=== PATIENT | female | born 1995 | race Caucasian/White ===

== ENCOUNTER → 2024-04-07 | Outpatient (CLI) | payer OTHER, SELFPAY ==
[2024-04-07 08:54] LABS: Free T4 (Free Thyroxine) 1.03 ng/dL (0.89-1.76); Thyroid Stimulating Hormone 1.84 uIU/mL (0.55-4.78)
[2024-04-13 06:16] LABS: ANA Screen, IFA NEGATIVE (NEGATIVE)
== END | disposition home or self-care (01) ==
LOC: COPL 07:11
PROVIDERS: PCP Internal Medicine; Referring Provider Internal Medicine; Visit Provider Internal Medicine
DX: M25.50 Pain in unspecified joint (principal); M85.89 Other specified disorders of bone density and structure, multiple sites
CPT/HCPCS: 36415; 84439; 84443; 86038

== ENCOUNTER 2024-06-28 07:43 | Emergency (ER) | payer OTHER, SELFPAY ==
[2024-06-28 07:44] VITALS: BMI 21.6
[2024-06-28 08:21] VITALS: BP 116/81; PULSE 80; RESP 18; TEMP 36.9; O2SAT 99
[2024-06-28 09:09] LABS: Strep A Rapid Negative (Negative)
--- NOTE | 2024-06-28 09:10 | EDNOTE_ITS ---
Upper Respiratory Inf. RME/HPI General Chief Complaint: Dental/Oral/Throat Stated Complaint: TONSIL PAIN AND BLEEDING LAST NIGHT Time Seen by Provider: 06/28/24 07:45 Arrival date/time: 06/28/24 07:43 29-year-old female presents emergency department today with complaint of sore throat patient reports she has had sore throat for more than a year intermittently Limitations: no limitations Related Data Allergies Allergy/AdvReac Type Severity Reaction Status Date / Time shellfish derived Allergy Verified 06/28/24 07:46 Review of Systems Review of Systems Systems Reviewed: All systems reviewed, normal except as documented Constitutional Constitutional: Reports system reviewed and no additional complaints, except as documented, Denies fever(s) and Denies headache(s) Eyes Eyes: Reports system reviewed and no additional complaints, except as documented and Denies blurry vision ENT Ears, Nose, Mouth, and Throat: Reports system reviewed and no additional complaints, except as documented, Denies headache(s), Denies nasal congestion, Reports nasal discharge, Reports nasal obstruction, Reports sore throat and Denies throat swelling Cardiovascular Cardiovascular: Reports system reviewed and no additional complaints, except as documented, Denies chest pain and Denies dyspnea Respiratory Respiratory: Reports system reviewed and no additional complaints, except as documented, Denies chest congestion, Denies cough and Denies dyspnea Gastrointestinal Gastrointestinal: Reports system reviewed and no additional complaints, except as documented and Denies abdominal pain Integumentary/Breasts Skin/Breast: Reports system reviewed and no additional complaints, except as documented and Denies rash Neurologic Neurologic: Reports system reviewed and no additional complaints, except as documented, Reports as per HPI and Denies headache(s) Allergic/Immunologic Allergic/Immunologic: Denies throat swelling Past Medical History Social History SMOKING STATUS: Never smoker ED Exam General Limitations: Present no limitations General appearance: Present alert and in no apparent distress Head Head exam: Present atraumatic, normocephalic and normal inspection Eye Eye exam: Present normal appearance, PERRL and EOMI; Absent conjunctival injection ENT ENT exam: Present normal exam, normal oropharynx and mucous membranes moist Neck Neck exam: Present normal inspection, full ROM and trachea midline Chest Chest inspection: Present normal inspection and symmetric chest wall rise Respiratory Respiratory exam: Present normal lung sounds bilaterally; Absent respiratory distress, wheezes, stridor, accessory muscle use or prolonged expiratory phase Cardiovascular Cardiovascular exam: Present regular rate, normal rhythm and normal heart sounds Abdominal Exam Abdominal exam: Present soft and normal bowel sounds; Absent distention, tenderness, guarding, rebound or rigidity Extremities Exam Extremities exam: Present normal inspection and full ROM Back Exam Back exam: Present normal inspection and full ROM Neurological Exam Neurological exam: Present alert, oriented X3 and CN II-XII intact Psychiatric Psychiatric exam: Present normal affect and normal mood Skin Skin exam: Present warm, dry, intact and normal color Course Quality Measures none Orders Category Date Time Status Strep A Rapid Stat Lab 06/28/24 08:48 Completed Vital Signs Vital signs: Vital Signs Temperature 98.4 F 06/28/24 08:21 Pulse Rate 80 06/28/24 08:21 Respiratory Rate 18 06/28/24 08:21 Blood Pressure 116/81 06/28/24 08:21 Pulse Oximetry (%) 99 06/28/24 08:21 Oxygen Delivery Method Room Air 06/28/24 08:21 O2 saturation 99% on room air within normal limits Upper Respiratory Infection MDM Narrative MDM Narrative:: 29-year-old female presents emergency department today with complaint of sore throat patient reports she has had sore throat for more than a year intermittently On exam patient well-appearing patient does not appear ill or toxic patient is no difficulty breathing no difficulty swallowing On exam patient has no tonsillar erythema or swelling Patient discharged home in no distress to follow-up with primary care doctor in the next 24 to 48 hours and for any worsening symptoms to return to the ER immediately Patient data External records reviewed:: [facility] previous records Clinical information provided by:: patient Social determinants that could affect healthcare access:: none Patient has the following chronic illnesses:: None How is presenting disease/condition affected by chronic disease/condition?: no chronic disease Evaluation data The following diagnostics were reviewed and interpreted by me:: other (specify) (N/A) Lab and/or radiology exams considered but not ordered:: Consider not ordered Interpretation Summary: N/A Medications / Prescriptions Medications or Prescriptions considered but not ordered:: Given Medication administrations:: Given Consultations Consultation(s) initiated? (list below): No Diagnosis Upper Respiratory Differential Diagnosis: upper respiratory infection, sinusitis, viral infection, bronchitis, influenza and pharyngitis Most likely diagnosis given after review of the tests above:: Pharyngitis Admission Indicated Admission indicated?: not indicated Admission Request Was there a request for admission?: No Disposition Plan Disposition Plan: Discharge Discharge Attestation Discharge Attestation: The patient and all family members were given an opportunity to ask questions and understood the discharge instructions. Discharge instructions specifically effects, indications for sooner follow up or return to the emergency department, and the expected course of current diagnosis. Patient condition: Stable Discharge Plan Plan Patient Disposition: HOME (Self Care) Disposition Comment: Stable Prescriptions/Referrals Referrals: No Primary/Family,Physician [Primary Care Provider] - In 1 week Problem List Clinical Impression: Acute viral pharyngitis Patient/Caregiver Discharge Instructions Education Materials: ED URI, Viral, No Abx (Adult) Additional Instructions: Please follow up with your primary care doctor in the next 24-48hrs for any worsening symptoms return here immediately Print Language: Czech Stand Alone Forms: Kim Award Info., Work/School Release, Patient Portal Info Letter PA/ITALO Supervising Physician DENISA/ITALO Supervising Physician: Dr Mi
--- NOTE | 2024-06-28 09:58 | PC.NURSE ---
@0945- PT CALLED FOR DISCHARGE INSTRUCTIONS; NO ANSWER. @0950- PT CALLED AGAIN; NO ANSWER. @0956- PT CALLED AGAIN NO ANSWER. PT LEFT WITHOUT DISCHARGE INSTRUCTIONS.
== END 2024-06-28 10:00 | disposition home or self-care (01) ==
PROVIDERS: Nurse Practitioner Primary Care; Emergency Provider Emergency Medicine
DX: J02.8 Acute pharyngitis due to other specified organisms (principal); B97.89 Other viral agents as the cause of diseases classified elsewhere
CPT/HCPCS: 87651; 99283

== ENCOUNTER → 2024-07-04 | Outpatient (CLI) | payer OTHER, SELFPAY ==
--- NOTE | 2024-07-04 | XR_ITS ---
Examination: PA lateral chest 2 views TECHNIQUE: Upright PA lateral chest 2 views Exam date and time: July 04, 2024 0731 hours INDICATIONS: Chest pain shortness of breath beginning 8 years ago FINDINGS: Normal heart size Lungs are clear. The osseous structures are intact IMPRESSION: No active disease
[2024-07-04 08:54] LABS: Free T4 (Free Thyroxine) 1.05 ng/dL (0.89-1.76); Thyroid Stimulating Hormone 4.11 uIU/mL (0.55-4.78)
[2024-07-04 08:56] LABS: Follicle Stimulating Hormone 3.88 mIU/mL (See Note)
[2024-07-12 07:00] LABS: Estrogen, Total, Serum* 61 pg/mL; Luteinizing Hormone* 1.7 mIU/mL; Progesterone,LC/MS* <0.1 ng/mL; T3 Uptake* 24 % (22-35); Testosterone, Free,Dialysis 0.7 pg/mL (0.1-6.4); Testosterone, Total, Dialysis 12 ng/dL (2-45)
== END | disposition home or self-care (01) ==
LOC: CDIM 07:07 → COPL 07:51
PROVIDERS: PCP Internal Medicine; Referring Provider Nurse Practitioner Family; Visit Provider Radiology Diagnostic Radiology
DX: R04.2 Hemoptysis (principal); M54.9 Dorsalgia, unspecified; J01.10 Acute frontal sinusitis, unspecified; R10.2 Pelvic and perineal pain; M25.50 Pain in unspecified joint; J03.90 Acute tonsillitis, unspecified; R10.13 Epigastric pain; R07.89 Other chest pain; R06.7 Sneezing; J30.89 Other allergic rhinitis; U07.1 COVID-19; Z30.09 Encounter for other general counseling and advice on contraception; F41.1 Generalized anxiety disorder; M85.89 Other specified disorders of bone density and structure, multiple sites
CPT/HCPCS: 36415; 71046; 82672; 83001; 83002; 84144; 84402; 84403; 84439; 84443; 84479

== ENCOUNTER → 2024-07-08 | Outpatient (CLI) | payer OTHER, SELFPAY ==
[2024-07-08 13:20] LABS: Basophils # (Auto) 0.1 Thou/mm3 (0.0-0.2); Basophils % (Auto) 1 % (0-2.5); Eosinophils # (Auto) 0.1 Thou/mm3 (0.0-0.5); Eosinophils % (Auto) 1 % (0-10); Hematocrit 40.2 % (36.0-46.0); Hemoglobin 13.8 g/dL (12.0-16.0); Immature Granulocytes % (Auto) 0 % (0-0); Immature Granulocytes Auto 0.05 Thou/mm3 (0.00-0.00); Lymphocytes # (Auto) 3.6 Thou/mm3 (1.0-4.8); Lymphocytes % (Auto) 25 % (10-50); Mean Corpuscular HGB Conc 34.3 g/dl (31.0-37.0); Mean Corpuscular Hemoglobin 31.9 pg (25.0-35.0); Mean Corpuscular Volume 93 fL (80-100); Monocytes # (Auto) 0.9 Thou/mm3 (0.0-0.8); Monocytes % (Auto) 7 % (0-12); Neutrophils # (Auto) 9.3 Thou/mm3 (1.8-7.7); Neutrophils % (Auto) 66 % (37-80); Nucleated Red Blood Cell % 0 /100 WBC (0); Platelet Count 394 Thou/mm3 (140-440); RDW Standard Deviation 43.2 fL (36.4-46.3); Red Blood Count 4.33 Miln/mm3 (4.00-5.20); White Blood Count 14.1 Thou/mm3 (3.6-11.0)
[2024-07-08 13:42] LABS: Folate 17.65 ng/mL (>5.38); Vitamin B12 288 pg/mL (211-911); Vitamin D 25 Hydroxy Total 33.2 ng/mL (7.3-40.2)
[2024-07-08 13:51] LABS: Alanine Aminotransferase 10 U/L (10-49); Albumin, Serum 4.5 gm/dL (3.5-5.0); Albumin/Globulin Ratio 1.7 (1.2-2.2); Alkaline Phosphatase 44 U/L (46-116); Anion Gap 7 (7-16); Aspartate Amino Transferase 14 U/L (0-34); BUN/Creatinine Ratio 12 Ratio (12-20); Bilirubin,Total 0.5 mg/dL (0.3-1.2); Blood Urea Nitrogen 11 mg/dL (9-23); C-Reactive Protein < 0.4 mg/dL (0.0-0.9); Calcium 10.1 mg/dL (8.3-10.6); Calcium (Corrected) 10.1 mg/dL (8.5-10.1); Carbon Dioxide 28.5 mMol/L (20.0-31.0); Chloride 103 mMol/L (98-107); Creatinine (Component) 0.9 mg/dL (0.6-1.3); Globulin 2.6 gm/dL (2.3-3.5); Glucose 79 mg/dL (74-106); Osmolality,Calculated 274 (275-295); Sodium 138 mMol/L (136-145); Total Protein 7.1 gm/dL (5.7-8.2); eGFR > 60 See Note
[2024-07-08 17:40] LABS: Sed Rate (ESR) 1 mm/hr (0-20)
[2024-07-10 14:44] LABS: RA Screen Negative (Negative)
[2024-07-18 15:37] LABS: Sjogren's antibody (SS-A) <1.0 NEG AI (<1.0 NEGATIVE)
[2024-07-19 06:25] LABS: ANA Screen, IFA NEGATIVE (NEGATIVE); CCP Antibody (IgG)* <16 Units; Sjogren's Antibody (SS-B) <1.0 NEG AI (<1.0 NEGATIVE); Thyroid Peroxidase Antibodies* 1 IU/mL (<9)
== END | disposition home or self-care (01) ==
LOC: COPL 12:05
PROVIDERS: PCP Nurse Practitioner Family; Referring Provider Internal Medicine; Visit Provider Internal Medicine
DX: Z30.09 Encounter for other general counseling and advice on contraception (principal); F32.A Depression, unspecified; F41.1 Generalized anxiety disorder; F41.9 Anxiety disorder, unspecified; J01.10 Acute frontal sinusitis, unspecified; J03.91 Acute recurrent tonsillitis, unspecified; J30.89 Other allergic rhinitis; K21.9 Gastro-esophageal reflux disease without esophagitis; M25.50 Pain in unspecified joint; M54.9 Dorsalgia, unspecified; M79.18 Myalgia, other site; M85.89 Other specified disorders of bone density and structure, multiple sites; R04.2 Hemoptysis; R07.89 Other chest pain; R10.13 Epigastric pain; R10.2 Pelvic and perineal pain; R53.83 Other fatigue; U07.1 COVID-19
CPT/HCPCS: 36415; 80053; 82306; 82607; 82746; 85025; 85652; 86038; 86140; 86200; 86235; 86376; 86430

== ENCOUNTER → 2024-07-18 | Outpatient (CLI) | payer OTHER, SELFPAY ==
--- NOTE | 2024-07-18 13:00 | XR_ITS ---
Examination: Thyroid sonography complete Technique: Grayscale sonographic images thyroid lobes with color flow analysis Exam date and time: July 18, 2024 1313 hrs. Indications: Lump in the neck with throat discomfort 4 months Findings: Right thyroid 4.2 x 1.1 x 1.1 cm Left thyroid 3.6 x 0.7 x 1.5 cm No thyroid nodules Impression: Negative examination
== END | disposition home or self-care (01) ==
LOC: CDIM 12:49
PROVIDERS: PCP Internal Medicine; Referring Provider Internal Medicine; Visit Provider Internal Medicine
DX: R22.1 Localized swelling, mass and lump, neck (principal)
CPT/HCPCS: 76536

== ENCOUNTER 2024-08-23 17:37 | Emergency (ER) | payer OTHER, SELFPAY ==
[2024-08-23 17:37] VITALS: BMI 22.3
[2024-08-23 18:18] VITALS: BP 127/72; PULSE 84; RESP 18; TEMP 37.2; O2SAT 99
[2024-08-23] MEDS: GLUCAGON INJ 1 MG VIAL IM (18:58)
[2024-08-23] MEDS: METOCLOPRAMIDE INJ 5 MG/ML VIAL 2 ML 10 MG IM (20:43)
--- NOTE | 2024-08-23 21:21 | PD.EDADULT ---
ED General RME/HPI General Chief complaint: General Adult/Misc Complain Stated complaint: PIECE OF STEAK LODGED IN THROAT Time Seen by Provider: 08/23/24 18:26 Arrival date/time: 08/23/24 17:37 29F with no significant PMH presents to ED with piece of steak stuck in esophagus. Patient denies SOB. Patient states this has been happening infrequently for the past 6 months. Patient is waiting for outpatient referral. Patient is unable to keep down any fluids. Limitations: no limitations Related Data Allergies Allergy/AdvReac Type Severity Reaction Status Date / Time shellfish derived Allergy Verified 08/23/24 17:39 Review of Systems Review of Systems Systems Reviewed: All systems reviewed, normal except as documented Constitutional Constitutional: Reports system reviewed and no additional complaints, except as documented, Denies fever(s) and Denies headache(s) ENT Ears, Nose, Mouth, and Throat: Reports as per HPI, Denies disequilibrium, Reports dysphagia and Denies headache(s) Cardiovascular Cardiovascular: Reports system reviewed and no additional complaints, except as documented, Denies chest pain and Denies dyspnea Respiratory Respiratory: Reports system reviewed and no additional complaints, except as documented, Denies cough and Denies dyspnea Gastrointestinal Gastrointestinal: Reports system reviewed and no additional complaints, except as documented, Denies abdominal pain, Reports dysphagia, Denies nausea and Denies vomiting Neurologic Neurologic: Reports system reviewed and no additional complaints, except as documented, Denies confusion, Denies disequilibrium and Denies headache(s) Psychiatric Psychiatric: Denies confusion Past Medical History Social History SMOKING STATUS: Never smoker ED Exam General Limitations: Present no limitations General appearance: Present alert and in no apparent distress Head Head exam: Present atraumatic Eye Eye exam: Present normal appearance, PERRL and EOMI ENT ENT exam: Present normal exam, normal oropharynx and mucous membranes moist Neck Neck exam: Present normal inspection, full ROM and trachea midline Chest Chest inspection: Present normal inspection and symmetric chest wall rise Respiratory Respiratory exam: Present normal lung sounds bilaterally Cardiovascular Cardiovascular exam: Present regular rate, normal rhythm and normal heart sounds Abdominal Exam Abdominal exam: Present soft and normal bowel sounds Extremities Exam Extremities exam: Present normal inspection and full ROM Back Exam Back exam: Present normal inspection and full ROM Neurological Exam Neurological exam: Present alert, oriented X3 and CN II-XII intact Psychiatric Psychiatric exam: Present normal affect and normal mood Skin Skin exam: Present warm, dry, intact and normal color Course Course Course Narrative: 29F with no significant PMH presents to ED with piece of steak stuck in esophagus. Patient denies SOB. Patient states this has been happening infrequently for the past 6 months. Patient is waiting for outpatient referral. Patient is unable to keep down any fluids. Physical exam reveals clear oropharynx. Normal WOB. Patient is afebrile, calm, and alert. Patient was given Glucagon with no improvement. Spoke to Dr. Fletcher, GI, who states give some Reglan. If still no improvement, he will do EGD in the morning. Patient was able to pass PO challenge after Reglan. Quality Measures none Orders Category Date Time Status Blood glucose [Bedside Blood Glucose] NOW Care 08/23/24 18:26 Completed Glucagon Inj Med 08/23/24 18:26 Discontinued 1 mg IM X1 ONE Metoclopramide Inj [Reglan Inj] Med 08/23/24 20:26 Discontinued 10 mg IM X1 ONE Vital Signs Vital signs: Vital Signs Temperature 99.0 F 08/23/24 18:18 Pulse Rate 84 08/23/24 18:18 Respiratory Rate 18 08/23/24 18:18 Blood Pressure 127/72 08/23/24 18:18 Pulse Oximetry (%) 99 08/23/24 18:18 Oxygen Delivery Method Room Air 08/23/24 18:18 O2 at 99% on RA and WNLs MDM Patient data External records reviewed:: [facility] previous records Clinical information provided by:: patient Social determinants that could affect healthcare access:: none Patient has the following chronic illnesses:: none How is presenting disease/condition affected by chronic disease/condition?: no chronic disease Evaluation data The following diagnostics were reviewed and interpreted by me:: other (specify) (none) Lab and/or radiology exams considered but not ordered:: not ordered Interpretation Summary: n/a Medications Medications considered but not ordered:: ordered Medication administrations:: Medication Administration History Discontinued Medications Glucagon (Glucagon Inj 1 Mg Vial) 1 mg IM X1 ONE Stop: 08/23/24 18:27 Last Admin: 08/23/24 18:58 Dose: 1 mg Documented By: GM Metoclopramide HCl (Metoclopramide Inj 5 Mg/Ml Vial 2 Ml) 10 mg IM X1 ONE; Protocol Stop: 08/23/24 20:27 Last Admin: 08/23/24 20:43 Dose: 10 mg Documented By: above Consultations Consultation(s) initiated? (list below): Yes Diagnosis Differential Diagnosis ED Complaint MDM: foreign body/food bolus in esophagus, functional disorder, aspiration PNA Most likely diagnosis given after review of the tests above:: sensation of foreign body/food bolus in esophagus Admission Indicated Admission indicated?: not indicated Explain why admission is indicated or not indicated:: resolved Admission Request Was there a request for admission?: No Disposition Plan Disposition Plan: Discharge Discharge Attestation Discharge Attestation: The patient and all family members were given an opportunity to ask questions and understood the discharge instructions. Discharge instructions specifically effects, indications for sooner follow up or return to the emergency department, and the expected course of current diagnosis. Patient condition: Stable Medical Decision Making Differential Diagnosis Differential Diagnosis: foreign body/food bolus in esophagus, functional disorder, aspiration PNA Discharge Plan Plan Patient Disposition: HOME (Self Care) Disposition Comment: Stable Prescriptions/Referrals Referrals: No Primary/Family,Physician [Primary Care Provider] - In 1 week Problem List Clinical Impression: Sensation of foreign body in esophagus Patient/Caregiver Discharge Instructions Education Materials: ED Foreign Body Esophageal Rslv Additional Instructions: Please follow-up with PCP within 24-48 hours and return immediately if symptoms worsen. Print Language: Czech Stand Alone Forms: Patient Portal Info Letter DENISA/ITALO Supervising Physician JAMEL Supervising Physician: Dr. Victoria
== END 2024-08-23 22:17 | disposition home or self-care (01) ==
PROVIDERS: Emergency Provider Emergency Medicine
DX: R19.8 Other specified symptoms and signs involving the digestive system and abdomen (principal)
CPT/HCPCS: 96372; 99283; J1610; J2765